=== PATIENT | male | born 1950 | race Caucasian/White ===

== ENCOUNTER 2020-11-17 08:12 | Emergency (ER) | payer MEDICARE ==
[~2020-11-17] VITALS: Ht 188 cm; Wt 93.8 kg
--- NOTE | 2020-11-17 09:28 | PHYS DOC ---
Past History Past Surgical History: Other Additional Past Surgical Histo: CARDIC STENTS X2 03-20; LEFT HIP REPLACEMENT Alcohol Use: Sober Additional Alcohol Information: A FEW DRINKS OF VODKA AND OJ/NIGHTLY Adult General Chief Complaint Chief Complaint: NOSEBLEED HPI HPI Patient is a 70-year-old male presenting for nosebleed. [place]. Reports he occasionally gets nosebleeds once in a blue linares. Reports current nosebleed started approximately 6 hours prior to arrival without any known trauma/ingestion/exposure. He admits he has been trying to hold pressure on and off but reports a slow steady bleed that really never stopped prompting him to come into the ER for evaluation. He has not attempted anything past direct pressure to stop his nose. He does admit recently starting Brilinta 2 months ago after having x2 cardiac stents placed. He estimates less than 4oz total blood loss and denies any concerning symptoms such as lightheadedness, dizziness, chest pain or shortness of breath. Review of Systems Review of Systems Fourteen body systems of review of systems have been reviewed. See HPI for pertinent positives and negative responses, other [place] all other systems are negative, non-pertinent or non-contributory Allergies Allergies Allergies Coded Allergies Type Severity Reaction Last Updated Verified No Known Drug Allergies 11/17/20 No Physical Exam Physical Exam Constitutional: Well developed, well nourished, no acute distress, non-toxic appearance. HENT: Normocephalic, atraumatic, bilateral external ears normal, oropharynx moist, no oral exudates, external nose unremarkable. Right nare unremarkable. Left nare without any obvious signs of trauma, there is mild bleeding present in the left nare that appears mid to posterior in location without an obvious identifiable source Eyes: PERRLA, EOMI, conjunctiva normal, no discharge. Neck: Normal range of motion, no tenderness, supple, no stridor. Cardiovascular: Heart rate regular, sinus rhythm, no murmurs rubs or gallops Lungs & Thorax: Bilateral breath sounds clear to auscultation Abdomen: Bowel sounds normal, soft, no tenderness, no masses, no pulsatile masses. Nonsurgical abdomen, no peritoneal signs Skin: Warm, dry, no erythema, no rash. Back: No tenderness, no CVA tenderness. Extremities: No tenderness, no cyanosis, no clubbing, ROM intact, no edema. Neurologic: Alert and oriented X 3, grossly normal motor & sensory function, no focal deficits noted. Psychologic: Affect normal, judgement normal, mood normal. Current Patient Data Vital Signs Vital Signs Date Time Temp Pulse Resp B/P (MAP) Pulse Ox O2 Delivery O2 Flow Rate FiO2 11/17/20 09:07 97.5 89 18 137/84 98 Room Air Lab Results Laboratory Tests Test 11/17/20 10:10 White Blood Count 6.3 x10^3/uL Red Blood Count 4.21 x10^6/uL Hemoglobin 14.2 g/dL Hematocrit 41.3 % Mean Corpuscular Volume 98 fL Mean Corpuscular Hemoglobin 34 pg Mean Corpuscular Hemoglobin Concent 34 g/dL Red Cell Distribution Width 12.5 % Platelet Count 168 x10^3/uL Neutrophils (%) (Auto) 70 % Lymphocytes (%) (Auto) 20 % Monocytes (%) (Auto) 9 % Eosinophils (%) (Auto) 1 % Basophils (%) (Auto) 1 % Neutrophils # (Auto) 4.5 x10^3uL Lymphocytes # (Auto) 1.2 x10^3/uL Monocytes # (Auto) 0.5 x10^3/uL Eosinophils # (Auto) 0.0 x10^3/uL Basophils # (Auto) 0.1 x10^3/uL Sodium Level 135 mmol/L Potassium Level 3.7 mmol/L Chloride Level 100 mmol/L Carbon Dioxide Level 25 mmol/L Anion Gap 10 Blood Urea Nitrogen 23 mg/dL Creatinine 1.3 mg/dL Estimated GFR (Cockcroft-Gault) 54.7 Glucose Level 115 mg/dL Calcium Level 8.7 mg/dL Current Medications Medications (Trade) Dose Ordered Sig/Chaitanya Route PRN Reason Start Time Stop Time Status Last Admin Dose Admin Oxymetazoline HCl (Afrin) 2 spray 1X ONCE NS 11/17/20 09:30 11/17/20 09:35 DC 11/17/20 09:47 EKG EKG [] Radiology/Procedures Radiology/Procedures [] Heart Score C/O Chest Pain: No Risk Factors: Risk Factors: DM, Current or recent (<one month) smoker, HTN, HLP, family history of CAD, obesity. Risk Scores: Risk Factors: DM, Current or recent (<one month) smoker, HTN, HLP, family history of CAD, obesity. Course & Med Decision Making Course & Med Decision Making ABCs unremarkable. I disclosed entirety of ER findings and discussed most likely diagnosis of epistaxis of unknown etiology. Patient asymptomatic with stable hemoglobin levels and vitals throughout entirety of ER visit. Direct pressure, numerous sprays of Afrin and eventual anterior nasal packing caused epistaxis of left nare to stop. Patient was reassessed numerous times without any obvious sign of rebleed. I discussed little indication for further diagnostic work-up and/or need for intervention in ER setting. I discussed need for outpatient ENT follow-up given history of Brilinta use and location of bleed. Plan of care discussed at length with need for close outpatient follow-up to review today's ER visit stressed. Strict return precautions were also discussed at length with good understanding by patient. Patient voiced understanding and agreement with the plan. Patient knows to come back for repeat evaluation if concerning signs or symptoms present prior to outpatient follow-up. Hemodynamically stable, ambulatory and well-appearing at time of disposition. Dragon Disclaimer Dragon Disclaimer This electronic medical record was generated, in whole or in part, using a voice recognition dictation system. Departure Departure: Impression: Primary Impression: Epistaxis Disposition: HOME / SELF CARE / HOMELESS Condition: STABLE Referrals: PCP,NO (PCP) Patient Instructions: Nosebleed Additional Instructions: You were seen for a nosebleed. You should blow your nose and hold pressure on the lower part of your nose if you develop a nose bleed again. Continue this for 20 minutes or until the bleeding stops. Do not remove the pressure to look before this time as your nose will start bleeding again. You were also given a nasal spray that should be used if your bleeding does not stop after 20 minutes when rechecked. Use 2 sprays in affected nostril and continue to hold pressure with reevaluation in 20 minutes time. As discussed, when you get back to [place] I advise given your comorbid conditions and use of Brilinta to follow- up with an ears nose throat for formal evaluation. You need to avoid putting anything in your nose in the future (e.g. fingers, kleenex, qtips, etc). If any concerning signs or symptoms present prior to ER departure please do not hes itate to contact our ER directly at [phone] or come back in for repeat evaluation. It was a pleasure to take care of you and I wish you the best going forward CLAY SLADE DO Nov 17, 2020 09:28
[2020-11-17] MEDS ORDERED: OXYMETAZOLINE 0.05% NASAL SPRAY 30ML BOTTLE. NS ONE (09:30)
[2020-11-17 10:32] LABS: BASO # 0.1 x10^3/uL (0.0-0.2); BASO % 1 % (0-3); EOS % 1 % (0-3); HEMATOCRIT 41.3 % (39.0-53.0); HEMOGLOBIN 14.2 g/dL (13.0-17.5); LYMPH # 1.2 x10^3/uL (1.0-4.8); LYMPH % 20 % (24-48); MEAN CORPUSCULAR HEMOGLOBIN 34 pg (25-35); MEAN CORPUSCULAR HGB CONC 34 g/dL (31-37); MEAN CORPUSCULAR VOLUME 98 fL (79-100); MONO # 0.5 x10^3/uL (0.0-1.1); MONO % 9 % (0-9); NEUT # 4.5 x10^3uL (1.8-7.7); NEUT % 70 % (31-73); PLATELET COUNT 168 x10^3/uL (140-400); RED BLOOD COUNT 4.21 x10^6/uL (4.30-5.70); RED CELL DISTRIBUTION WIDTH 12.5 % (11.5-14.5); WHITE BLOOD COUNT 6.3 x10^3/uL (4.0-11.0)
[2020-11-17 10:40] LABS: CALCIUM 8.7 mg/dL (8.5-10.1); CREATININE 1.3 mg/dL (0.7-1.3); GFR 54.7; POTASSIUM 3.7 mmol/L (3.5-5.1)
[2020-11-17 12:39] VITALS: BP 122/69
== END 2020-11-17 12:40 | disposition home or self-care (01) ==
LOC: ER 08:12
DX: R04.0 Epistaxis (principal)
CPT/HCPCS: 30901; 36415; 80048; 85025; 99283-25